=== PATIENT | male | born 1945 | race Hispanic/Latino ===

== ENCOUNTER → 2019-07-02 | Outpatient (CLI) | payer OTHER | END | disposition home or self-care (01) | LOC: LAB 13:09 | PROVIDERS: ATTEND Internal Medicine Cardiovascular Disease | DX: I73.9 Peripheral vascular disease, unspecified (principal) | CPT/HCPCS: 36415; 82565; 84520 ==

== ENCOUNTER → 2019-07-03 | Outpatient (CLI) | payer OTHER ==
[~2019-07-03] MED LIST: IOHEXOL 350 MG/ML 100ML INFUS..BTL IV ONE; IOHEXOL-350 50ML VIAL IV ONE
== END | disposition home or self-care (01) ==
LOC: RAH 08:06
PROVIDERS: ATTEND Internal Medicine Cardiovascular Disease
DX: I70.293 Other atherosclerosis of native arteries of extremities, bilateral legs (principal)
CPT/HCPCS: 75635; Q9967 ×2

== ENCOUNTER 2019-09-10 07:35 | Day surgery (SDC) | payer OTHER ==
[2019-09-08 10:24] LABS: BASOPHILS % (AUTO) 1.1 % (0.0-5.0); EOSINOPHILS % (AUTO) 6.1 % (0.0-8.0); HEMATOCRIT 39.7 % (42-54); LYMPHOCYTES % (AUTO) 18.1 % (21.0-51.0); MEAN CORPUSCULAR HEMOGLOBIN 33.1 pg (27.0-33.0); MEAN CORPUSCULAR HGB CONC 34.3 g/dL (32.0-36.0); MEAN CORPUSCULAR VOLUME 96.3 fL (79-99); MONOCYTES % (AUTO) 8.9 % (3.0-13.0); NEUTROPHILS % (AUTO) 65.8 % (40.0-77.0); PLATELET COUNT (AUTO) 151 K/uL (130-400); RED BLOOD CELL COUNT(AUTO) 4.12 MIL/uL (4.50-6.20); RED CELL DISTRIBUTION WIDTH 14.5 % (11.0-15.5); WHITE BLOOD COUNT (AUTO) 4.3 K/uL (4.8-10.8)
[2019-09-08 10:29] LABS: APPEARANCE,URINE Clear (CLEAR); BILIRUBIN,URINE Negative (NEGATIVE); COLOR,URINE Yellow (YELLOW); GLUCOSE, URINE (UA) Negative (NEGATIVE); KETONES,URINE Negative (NEGATIVE); LEUKOCYTE ESTERASE ,URINE Negative (NEGATIVE); NITRATE,URINE Negative (NEGATIVE); OCCULT BLOOD,URINE Small (NEGATIVE); PH,URINE 5.5 (5.0-8.0); PROTEIN,URINE Negative (NEGATIVE)
[2019-09-08 10:29] LABS: CREATININE 0.8 mg/dL (0.5-1.5); POTASSIUM 4.1 mmol/L (3.5-5.1)
[2019-09-08 10:36] LABS: INR 1.05 (0.85-1.15); PARTIAL THROMBOPLASTIN TIME 26.9 SEC (26.3-35.5)
[2019-09-08 11:06] LABS: BACTERIA,URINE Few /HPF (None Seen)
[2019-09-08 11:07] LABS: WBC,URINE None Seen /HPF (0-1)
[2019-09-08 11:19] VITALS: BP 192/82
[~2019-09-10] VITALS: Ht 180.3 cm; Wt 100.5 kg
[2019-09-10] VITALS (9 sets, daily range): BP systolic 133–202; BP diastolic 65–98
[~2019-09-10 07:35] MED LIST changes: +AEC81 PO; -IOHEXOL 350 MG/ML 100ML INFUS..BTL IV ONE; -IOHEXOL-350 50ML VIAL IV ONE; +SIMV20TA6 PO
--- NOTE | 2019-09-10 07:40 | NUR ---
PRE-PROCEDURE RECEIVED FROM HOME VIA AMBULATING FOR SCHEDULED LLE ANGIOGRAM/[place] ATTORNEY TO DAY 7. DENIES PAIN. CONNECTED TO CONTINUOUS CARDIOPULMONARY MONITORING. LEFT FOOT WITH DRESSING COVERING NON-HEALING WOUND. SIDE RAILS UP X2, BED IN LOWEST POSITION, AND CALL LIGHT W/IN REACH.
[2019-09-10] MEDS ORDERED: SODIUM CHLORIDE 0.9% 1000ML 1,000 ML IV ONE (08:26)
[2019-09-10] MEDS ORDERED: LISI40TA4 PO (08:29)
--- NOTE | 2019-09-10 09:45 | NUR ---
PROCEDURE TRANSFERRED TO RECEPTION CENTRE MANAGER VIA BED FOR SCHEDULED LLE ANGIOGRAM/NEEDLE LOOM SETTER BY LEFTY CORBETT RN. AWAKE IN NO ACUTE DISTRESS.
[2019-09-10] MEDS ORDERED: FENTANYL CITRATE PF 50 MCG/1 ML 2ML VIAL ONE (09:51)
[2019-09-10] MEDS ORDERED: HEPARIN SODIUM 1000UNIT/ML 10ML VIAL ONE (09:51)
[2019-09-10] MEDS ORDERED: MIDAZOLAM HCL 1 MG/ML 2ML VIAL ONE (09:51)
[2019-09-10] MEDS ORDERED: NITROGLYCERIN 5 MG/ML 10 ML VIAL IV ONE (09:51)
[2019-09-10] MEDS ORDERED: LIDOCAINE HCL 2% 20ML ONE (09:52)
--- NOTE | 2019-09-10 11:17 | NUR ---
POST-PROCEDURE RECEIVED FROM [facility]PER VIA BED S/P LEFT LLE ANGIOGRAM BY LEFTY CORBETT RN. AWAKE IN NO ACUTE DISTRESS. ANGIOSEAL DRESSING TO RIGHT GROIN CLEAN, DRY, AND INTACT. CONNECTED TO CONTINUOUS CARDIOPULMONARY DRESSING. SIDE RAILS UP X2, BED IN LOWEST POSITION, AND CALL LIGHT W/IN REACH.
--- NOTE | 2019-09-10 11:17 | NUR ---
EDUCATION EDUCATED ON IMPORTANCE OF KEEPING RIGHT LEG STRAIGHT AND NOT TO ELEVATE HEAD TO PREVENT BLEEDING AT CATH SITE. VERBALIZED UNDERSTANDING.
--- NOTE | 2019-09-10 11:25 | NUR ---
MD ROUNDS DR. STUBBS IN TO SEE PATIENT. FINDINGS WITH CATH PROCEDURE EXPLAINED TO PT AND FAMILY. BOTH VERBALIZED UNDERSTANDING.
--- NOTE | 2019-09-10 13:17 | NUR ---
ACTIVITY UP TO CHAIR WITH MINIMAL ASSIST X1. GAIT STEADY. CATH SITE W/O SIGNS OF BLEEDING, DRESSING CLEAN, DRY, AND INTACT; SITE SOFT, NON-TENDER.
--- NOTE | 2019-09-10 13:30 | NUR ---
DIET ATE 100% OF LUNCH.
--- NOTE | 2019-09-10 13:45 | NUR ---
DISCHARGE DAY PT DISCHARGE INSTRUCTION SHEET, MED REC, AND PT SUMMARY TRANSLATED IN ROMANIAN BY MATILDA PETER. EDUCATED ON CHECKING CATH SITE FOR SIGNS OF BLEEDING AT HOME. EDUCATED IF ANY SIGNS OF BLEEDING PRESENT TO APPLY DIRECT PRESSURE AND CALL 911. VERBALIZED UNDERSTANDING. OPPORTUNITY GIVEN TO ASK QUESTIONS. NO QUESTIONS OR CONCERNS VOICED.
--- NOTE | 2019-09-10 14:00 | NUR ---
DISCHARGE DISCHARGED VIA W/C. AWAKE IN NO ACUTE DISTRESS.
== END 2019-09-10 14:00 | disposition home or self-care (01) ==
LOC: DAH 07:35
PROVIDERS: ATTEND Internal Medicine Cardiovascular Disease
DX: I70.213 Atherosclerosis of native arteries of extremities with intermittent claudication, bilateral legs (principal); I70.245 Atherosclerosis of native arteries of left leg with ulceration of other part of foot; L97.529 Non-pressure chronic ulcer of other part of left foot with unspecified severity; I10 Essential (primary) hypertension; E78.5 Hyperlipidemia, unspecified; Z79.899 Other long term (current) drug therapy; Z79.01 Long term (current) use of anticoagulants; Z79.82 Long term (current) use of aspirin; Z82.49 Family history of ischemic heart disease and other diseases of the circulatory system
CPT/HCPCS: 36247; 36415; 71045; 75716; 80048; 81001; 85025; 85610; 85730; 93005; A4215; A4216; A4221; A4222; A4223 ×3; A4606; A4663; C1760; C1769; C1893; C1894 ×2; J1644; J2250; J3010; J3490 ×2; J7030; 99156; 99157

== ENCOUNTER → 2019-09-15 | Outpatient (CLI) | payer OTHER ==
[~2019-09-15] MED LIST changes: +LISI40TA4 PO
== END | disposition home or self-care (01) ==
LOC: RAH 08:31
PROVIDERS: ATTEND Internal Medicine
DX: K80.20 Calculus of gallbladder without cholecystitis without obstruction (principal); R16.1 Splenomegaly, not elsewhere classified; K76.0 Fatty (change of) liver, not elsewhere classified
CPT/HCPCS: 76700

== ENCOUNTER → 2022-02-22 | Outpatient (CLI) | payer OTHER ==
[~2022-02-22] MED LIST changes: -LISI40TA4 PO; +LISI40TA9 PO; +SIMV-43 PO; -SIMV20TA6 PO
== END | disposition home or self-care (01) ==
LOC: RAH 09:07
PROVIDERS: ATTEND Internal Medicine Gastroenterology
DX: K80.20 Calculus of gallbladder without cholecystitis without obstruction (principal); N28.1 Cyst of kidney, acquired; R94.5 Abnormal results of liver function studies
CPT/HCPCS: 76700